=== PATIENT | female | born 1945 | race African-American/Black ===

== ENCOUNTER 2022-04-02 11:05 | Observation (INO) | payer MEDICARE ==
[~2022-04-02] VITALS: Ht 152.4 cm; Wt 46.0 kg
[2022-04-02] VITALS (28 sets, daily range): BP systolic 104–143; BP diastolic 39–60
[~2022-04-02 11:05] MED LIST: AMLODIPINE5 MG OR; AMLODIPINE5 MG PO; BACTRIM DS1 TAB PO; BAYER ASPIRIN E81 MG PO; BAYER LOW81 MG OR; BENAZEPRIL5 MG PO; CARVEDILOL12.5 MG OR; CIPROFLOXACN500 MG PO; COREG12.5 MG OR; COZAAR100 MG PO; DIABETA5 MG OR; DONEPEZIL HCL10 M1 PO; FLAGYL500 MG PO; GLYBURIDE5 M1 OR; GLYBURIDE5 MG PO; HYDROCHLOROT25 MG OR; KEFLEX500 MG PO; LEVOTHYROXIN100 MCG PO; LORTAB 10 PO; LORTAB 5/3255 MG PO; LORTAB 7.5 PO; LORTAB5 PO; MAXZIDE-2537.5 MG/TA PO; MECLIZINE12.5 MG OR; METFORMIN1000 MG OR; METFORMIN500 M1 OR; METFORMIN500 M1 PO; METFORMIN500 M2 PO; METROGEL VAG0.75 % VA; MONISTAT 3 VA; NAPROSYN500 MG OR; NORVASC10 M1 PO; NORVASC5 MG PO; NOVOLIN 70/30 SC; NOVOLIN N1000 UNITS SC; NOVOLOG; NOVOLOG SC; NOVOLOG100 IU/1 M SC; PENICILLN VK500 M1 OR; POTASSIUM CHLO10 MEQ PO; PRAVACHOL40 MG PO; ROBITUSSIN AC10 ML OR; SENNA8.6 MG PO; TAMOXIFEN; TAMOXIFEN CITRA10 MG PO; TAMOXIFEN XX; ZESTORETIC 20/11 TAB OR; ZYRTEC ALLGY10 M1 PO
--- NOTE | 2022-04-02 11:05 | NUR ---
PT IN ROOM VIA EMS
[2022-04-02 11:29] LABS: IMMATURE GRANULOCYTES 0.3 % (0.0-5.0); MEAN CORPUSCULAR HGB 30.5 pG CALC (26.0-32.0); MEAN CORPUSCULAR HGB CONC 31.7 g/dL CAL (32.0-36.0); NEUT# 6.15 thou/uL (2.00-7.15); RED BLOOD COUNT 1.87 mill/uL (4.20-5.60); RED CELL DISTRI WIDTH 13.3 % (11.5-15.5)
[2022-04-02 11:31] LABS: HEMOGLOBIN 5.7 g/dl (12.0-16.0); MEAN CELL VOLUME 96.3 fL CALC (80.0-100.0)
[2022-04-02 11:46] LABS: ALBUMIN 4.1 g/dL (3.2-5.0); ALKALINE PHOSPHATASE 67 u/l (38-126); CHLORIDE 108 mmol/l (95-108); POTASSIUM 5.1 mmol/l (3.5-5.1); SODIUM 138 mmol/l (137-146); TOTAL PROTEIN 7.4 g/dL (6.3-8.2)
[2022-04-02 11:56] LABS: ANION GAP 16 (6-22 (CALC)); BILIRUBIN, TOTAL 0.3 mg/dL (0.0-1.4); BUN/CREATININE RATIO 28 (12-20 (CALC)); CARBON DIOXIDE 19 mmol/l (22-30); CREATININE 3.1 mg/dL (0.5-1.0); GFR FOR AFR.AMER. 18 ML/MIN (>=60 (CALC)); GFR OTHER RACES 15 ML/MIN (>=60 (CALC)); SGOT/AST 42 u/l (9-36)
[2022-04-02 11:57] LABS: BUN 88 mg/dL (8-23)
--- NOTE | 2022-04-02 12:00 | NUR ---
Reassessment of patient completed. No distress noted.
--- NOTE | 2022-04-02 13:01 | NUR ---
Reassessment of patient completed. No distress noted.
--- NOTE | 2022-04-02 14:00 | NUR ---
PT IS RECEIVED BLOOD. PT IN BED RESTING WITH HER EYES CLOSED
--- NOTE | 2022-04-02 15:00 | NUR ---
PT IS STILL IN ROOM RESTING WITH EYES CLOSED. BLOOD CONTINUE TO BE TRANSFUSED. PT HAS NO COMPLAINT
[2022-04-02] MEDS ORDERED: TRAZODONE100 MG PO (15:59)
--- NOTE | 2022-04-02 16:00 | NUR ---
PT IN ROOM RESTING. FIRST UNIT OF BLOOD IS ALMOST DONE. PT TOLERATED TRANSFUSION. NO COMPLAINT, NAD
[2022-04-02] MEDS ORDERED: FERROUS SULF325 M3 PO (16:01)
[2022-04-02] MEDS ORDERED: CLOPIDOGREL75 MG PO (16:02)
[2022-04-02] MEDS ORDERED: METOPROL TAR25 MG PO (16:03)
[2022-04-02] MEDS ORDERED: LIPITOR80 M1 PO (16:04)
[2022-04-02] MEDS ORDERED: ASPIRIN81 MG PO (16:05)
--- NOTE | 2022-04-02 17:05 | NUR ---
RECIEVED FROM ER VIA STRETCHER AT 1653 TO ROOM 272. ALERT AND ORIENTED WITH PERIODS OF CONFUSION. ASSIST OF 1 WITH ADLs.
--- NOTE | 2022-04-02 17:09 | NUR ---
PT ADMITTED TO MS 272. BEDSIDE REPORT GIVEN TO DENNYS
--- NOTE | 2022-04-02 17:30 | NUR ---
SISTER AND GRANDSON AT BEDSIDE.
[2022-04-02 18:24] LABS: HEMOGLOBIN 7.6 g/dl (12.0-16.0)
--- NOTE | 2022-04-02 18:40 | NUR ---
BLOOD TRANSFUSION INFUSING AT THIS TIME NO S/S OF BLOOD TRANSFUSION REACTION NOTED.
--- NOTE | 2022-04-02 19:30 | NUR ---
PATIENT RESTING IN BED AT THIS TIME-AWAKE ALERT ORIENTED TO SELF AND PLACE. FORGETFUL AT TIMES. BLOOD TRANSFUSION IN PROGRESS VIA IVF SITE TO LEFT FOREARM. SITE IS HEALTHY AT THIS TIME. UNIT#[id number] INFUSING. NO S/S OF ANY ADVERSE REACTION AT THIS TIME. TELE MONITOR IN PLACE. SALINE LOCK TO RIGHT FOREARM INTACT. PATIENT WITH NO COMPLAINTS AT THIS TIME. SAFETY PRECAUTIONS REINFORCED. CALL LIGHT IN REACH. WILL CONT TO MONITOR.
--- NOTE | 2022-04-02 21:15 | NUR ---
BLOOD TRANSFUSION UNIT#[id number] COMPLETED WITHOUT ANY ADVERSE REACTION. IVF NS PATENT AND INFUSING ORDERED AT 100CC/HR. SITE TO LEFT FOREARM REMAINS HEALTHY. TELE MONITOR IN PLACE. HS MEDS WERE GIVEN. SAFETY PRECAUTIONS REINFORCED. CALL LIGHT IN REACH. WILL CONT TO MONITOR.
--- NOTE | 2022-04-02 23:30 | NUR ---
PATIENT RESTING IN BED-VENOFER 200MG IN 100CC OF NS HUNG AND INFUSING VIA LEFT FOREARM SITE. PATIENT IS SLEEPING WITH EYES CLOSED AND RESPS EVEN AND UNLABORED. CALL LIGHT IN REACH. WILL CONT TO MONITOR.
[2022-04-03] VITALS (7 sets, daily range): BP systolic 152–187; BP diastolic 57–67
[2022-04-03 00:25] LABS: HEMATOCRIT 26.7 % (37.0-47.0)
--- NOTE | 2022-04-03 02:30 | NUR ---
PATIENT RESTING IN BED WITH EYES CLOSED. RESPS ARE EVEN AND UNLABORED. IVF PATENT AND INFUSING VIA LEFTG ARM SITE AT 100CC/HR. SITE REMAINS HEALTHY. TELE MONITOR IN PLACE. CALL LIGHT IN REACH. WILL CONT TO MONITOR.
--- NOTE | 2022-04-03 04:06 | NUR ---
PATIENT RESTING IN BED WITH EYES CLOSED AND RESPS ARE EVEN AND UNLABORED. CALL LIGHT IN REACH. IVF PATENT AND INFUSING VIA LEFT FOREARM IV SITE. TELE MONITOR IN PLACE. CALL LIGHT IN REACH. WILL CONT TO MONITOR.
[2022-04-03 06:11] LABS: HEMATOCRIT 28.5 % (37.0-47.0); HEMOGLOBIN 9.5 g/dl (12.0-16.0)
[2022-04-03 07:05] LABS: HEMATOCRIT 28.2 % (37.0-47.0); HEMOGLOBIN 9.3 g/dl (12.0-16.0); MEAN CELL VOLUME 93.4 fL CALC (80.0-100.0); MEAN CORPUSCULAR HGB 30.8 pG CALC (26.0-32.0); RED BLOOD COUNT 3.02 mill/uL (4.20-5.60); RED CELL DISTRI WIDTH 14.3 % (11.5-15.5)
[2022-04-03 07:46] LABS: CREATININE 1.9 mg/dL (0.5-1.0); POTASSIUM 5.2 mmol/l (3.5-5.1)
--- NOTE | 2022-04-03 09:11 | NUR ---
RESTING IN BED AWAKE. ADDITIONAL WARM BLANKET GIVEN PER PT REQUEST.
--- NOTE | 2022-04-03 13:47 | NUR ---
DIET CHANGED TO CARDIAC DIET.
--- NOTE | 2022-04-03 17:20 | NUR ---
FAMILY AT BEDSIDE.
--- NOTE | 2022-04-03 20:00 | NUR ---
PATIENT AWAKE ALERT AND ORIENTED TO PERSON AND PLACE-KNOW BIRTHDATE BUT IS FORGETFUL. MORE ALERT TONIGHT THAN LAST NIGHT. STATES THAT SHE WANTS TO GO HOME. PATIENT PROVIDED WITH SNACKS PER PATIENT REQUEST. APPETITE IS VERY GOOD. PROVIDED MORE BLANKETS PER PATIENT REQUEST. IV SITE TO LEFT FOREARM INTACT WITH IVF NS PATENT AND INFUSING AT 10CC/HR. SITE REMAINS HEALTHY. TELE MONITOR IN PLACE-LAST READING WAS [id number]. LUNGS ARE CLEAR. ABD IS SOFT WITH ACTIVE BS. NO PERPHERAL EDEMA NOTED. SAFETY PRECAUTIONS REINFORCED. CALL LIGHT IN REACH. WILL CONT TO MONITOR.
--- NOTE | 2022-04-03 23:24 | NUR ---
PATIENT RESTING IN BED WITH HOB SLIGHTLY ELEVATED. EYES ARE CLOSED AND RESPS ARE EVEN AND UNLABORED. IVF PATENT AND INFUSING AT 100CC/HR ORDERED, TELE MONITOR IN PLACE. CALL LIGHT IN REACH. WILL CONT TO MONITOR.
[2022-04-04 00:08] VITALS: BP 144/53
--- NOTE | 2022-04-04 02:10 | NUR ---
PATIENT RESTING IN BED-HOB SLIGHTLY ELEVATED. EYES CLOSED AND RESPS ARE EVEN AND UNLABORED. TELE MONITOR IN PLACE. IVF NS PATENT AND INFUSING VIA LEFT ARM IV SITE AT 100CC/HR. CALL LIGHT IN REACH. WILL CONT TO MONITOR.
--- NOTE | 2022-04-04 04:30 | NUR ---
PATIEN T RESTING IN BED AT THIS TIME WITH EYES CLOSED. RESPS ARE EVEN AND UNLABORED. TELE MONITOR IN PLACE. CALL LIGHT IN REACH. WILL CONT TO MONITOR.
[2022-04-04 04:39] VITALS: BP 156/61
[2022-04-04 06:02] LABS: HEMATOCRIT 27.4 % (37.0-47.0); MEAN CELL VOLUME 94.5 fL CALC (80.0-100.0); MEAN CORPUSCULAR HGB CONC 32.8 g/dL CAL (32.0-36.0); RED BLOOD COUNT 2.9 mill/uL (4.20-5.60); RED CELL DISTRI WIDTH 14.3 % (11.5-15.5)
[2022-04-04 06:12] LABS: CREATININE 1.2 mg/dL (0.5-1.0); MAGNESIUM 2.5 mg/dL (1.6-2.3); POTASSIUM 4.5 mmol/l (3.5-5.1)
[2022-04-04 07:00] VITALS: BP 169/61
--- NOTE | 2022-04-04 07:17 | NUR ---
RECIEVED REPORT FROM OFF GOING NURSE. RESTING IN BED. NO S/S OF DISTRESS NOTED.
--- NOTE | 2022-04-04 11:01 | NUR ---
RESTING IN BED NO C/O PAIN VOICED. NO S/S OF PAIN NOTED. FREQ ROUNDS ROUNDS MADE TO ENSURE PT SAFETY.
--- NOTE | 2022-04-04 11:34 | NUR ---
RECIEVED MEDLIST FROM [facility].
[2022-04-04] MEDS ORDERED: GLIPIZIDE ER5 MG PO (11:39)
[2022-04-04] MEDS ORDERED: KAPSPARGO SPRIN25 MG (11:42)
[2022-04-04] MEDS ORDERED: PROTONIX40 M2 PO (12:42)
--- NOTE | 2022-04-04 14:24 | NUR ---
SPOKE WITH LETICIA JIMENEZ IN REGARDS TO PT DISCHARGE AND NEED FOR TRANSPORT HOME.
--- NOTE | 2022-04-04 14:43 | NUR ---
DISCHARGE INSTRUCTIONS PROVIDED. PIV TO LT FA REMOVED PT TOLERATED WELL. VOLUNTEER STAFF TRANSFERRED PT VIA W/C OFF UNIT.
== END 2022-04-04 14:44 ==
LOC: ED 11:05 → ED-I 12:23 → ED 14:04 → MS2 14:05
PROVIDERS: Emergency Medicine; ADMIT Internal Medicine; ATTEND Internal Medicine
PROC: 30233N1 Transfusion of Nonautologous Red Blood Cells into Peripheral Vein, Percutaneous Approach (ICD-10-PCS; principal; 2022-04-02)
PROC: 30233N1 Transfusion of Nonautologous Red Blood Cells into Peripheral Vein, Percutaneous Approach (ICD-10-PCS; 2022-04-02)
DX: D62 Acute posthemorrhagic anemia (principal); R19.5 Other fecal abnormalities; N17.9 Acute kidney failure, unspecified; I12.9 Hypertensive chronic kidney disease with stage 1 through stage 4 chronic kidney disease, or unspecified chronic kidney disease; E11.22 Type 2 diabetes mellitus with diabetic chronic kidney disease; N18.9 Chronic kidney disease, unspecified; F03.90 Unspecified dementia, unspecified severity, without behavioral disturbance, psychotic disturbance, mood disturbance, and anxiety; E03.9 Hypothyroidism, unspecified; E78.00 Pure hypercholesterolemia, unspecified; Z79.84 Long term (current) use of oral hypoglycemic drugs; Z79.82 Long term (current) use of aspirin; Z86.73 Personal history of transient ischemic attack (TIA), and cerebral infarction without residual deficits; Z79.02 Long term (current) use of antithrombotics/antiplatelets; Z85.3 Personal history of malignant neoplasm of breast; Z91.81 History of falling
CPT/HCPCS: J1756; P9016; S0164

== ENCOUNTER 2022-04-17 15:14 | Inpatient (IN) | payer MEDICARE ==
[~2022-04-17] VITALS: Ht 152.4 cm; Wt 50.0 kg
[2022-04-17] VITALS (31 sets, daily range): BP systolic 103–153; BP diastolic 42–92
[~2022-04-17 15:14] MED LIST changes: +ASPIRIN81 MG PO; +CLOPIDOGREL75 MG PO; +FERROUS SULF325 M3 PO; +GLIPIZIDE ER5 MG PO; +LIPITOR80 M1 PO; +METOPROL TAR25 MG PO; +PROTONIX40 M2 PO; +TOPROL XL25 M1 PO; +TRAZODONE100 MG PO
--- NOTE | 2022-04-17 15:14 | NUR ---
PT TO ROOM VIA EMS
[2022-04-17 15:40] LABS: IMMATURE GRANULOCYTES 0.2 % (0.0-5.0); MEAN CORPUSCULAR HGB 30.9 pG CALC (26.0-32.0); MEAN CORPUSCULAR HGB CONC 30.9 g/dL CAL (32.0-36.0); NEUT# 4.14 thou/uL (2.00-7.15); RED BLOOD COUNT 1.75 mill/uL (4.20-5.60)
--- NOTE | 2022-04-17 16:00 | NUR ---
PT REPORTS TO THE ED VIA EMS C/O GENERALIZED WEAKNESS, INCONTINIENCE, UNSTEADINESS ON HER FEET AND DECREASED APPETITE FOR THE PAST 2 AND A HALF WEEKS BUT INCREASED WEAKNESS TODAY COUNTY TREASURER. PT REPORTS NOT REMEMBERING FALLING ON THE GROUND AND FAMILY FOUND HER ON THE FLOOR AT HOME. PT DENIES ANY PAIN OF ANY KIND, AND STATES SHANT SHE IS ' JUST TIRED AND WEAK'. NO PAIN WAS NOTED ON EXAMINATION AND NO BRUISING OR ABRASIONS NOTED ON PT'S SKIN. PT IN IN NAD AT THIS TIME. PT REORTS SHANT AT HER LAST ER VISIT, 2 1/2 WEEKS AGO, SHE RECIEVED A IRON INFUSION DUE TO LOW HEMOGLOBIN.
[2022-04-17 16:04] LABS: ALBUMIN 3.6 g/dL (3.2-5.0); ALKALINE PHOSPHATASE 70 u/l (38-126); ANION GAP 14 (6-22 (CALC)); BILIRUBIN, TOTAL 0.3 mg/dL (0.0-1.4); BUN 56 mg/dL (8-23); BUN/CREATININE RATIO 32 (12-20 (CALC)); CARBON DIOXIDE 21 mmol/l (22-30); CHLORIDE 113 mmol/l (95-108); CREATININE 1.7 mg/dL (0.5-1.0); GFR FOR AFR.AMER. 35 ML/MIN (>=60 (CALC)); GFR OTHER RACES 29 ML/MIN (>=60 (CALC)); SGOT/AST 29 u/l (9-36); SODIUM 143 mmol/l (137-146); TOTAL PROTEIN 6.8 g/dL (6.3-8.2)
[2022-04-17 16:06] LABS: HEMOGLOBIN 5.4 g/dl (12.0-16.0)
[2022-04-17 16:07] LABS: HEMATOCRIT 17.5 % (37.0-47.0)
[2022-04-17 16:09] LABS: POTASSIUM 5.4 mmol/l (3.5-5.1)
--- NOTE | 2022-04-17 16:30 | NUR ---
Reassessment of patient completed. No distress noted.
[2022-04-17] MEDS ORDERED: COLACE100 MG PO (16:58)
[2022-04-17] MEDS ORDERED: TRAZODONE50 MG PO (17:00)
[2022-04-17] MEDS ORDERED: MAXZIDE PO (17:01)
--- NOTE | 2022-04-17 17:15 | NUR ---
AIDEN TENORIO APRN WITH FECAL OCCULT TEST.
--- NOTE | 2022-04-17 17:33 | NUR ---
Reassessment of patient completed. No distress noted.
--- NOTE | 2022-04-17 18:29 | NUR ---
IN ROOM WITH PT ADMINISTERING BLOOD PRODUCTS. NAD.
--- NOTE | 2022-04-17 19:21 | NUR ---
REPORT CALLED TO CAMI ON MED/SURG ROOM 261. PT WILL BE TRANSPORTED ONCE SHIFT CHANGE IS TAKEN.
--- NOTE | 2022-04-17 19:30 | NUR ---
RECEIVED REPORT AND ASSUMED CARE OF PT. PT RESTING WITH PRBCS INFUSING. NAD.
--- NOTE | 2022-04-17 20:00 | NUR ---
Reassessment of patient completed. No distress noted. PRBCS INFUSING.
--- NOTE | 2022-04-17 20:48 | NUR ---
PT TRANSFERRED TO MED SURG. 261
--- NOTE | 2022-04-17 20:50 | NUR ---
PATIENT ADMITTED TO ROOM 261. ALERT AND ORIENTED. ABLE TO MAKE NEEDS KNOWN. TRANSFERRED TO ROOM BED VIA STRETCHER WITH STAFF X3. ASSESSMENT COMPLETE. NO OPEN AREAS OBSERVED. DOES HAVE RAISED DRY SITES TO FEET. DENIES ANY PAIN OR DISCOMFORT. NO SIGNS OF DISTRESS. FIRST UNIT OF BLOOD REMAINS TRANSFUSING. WILL CONTINUE TO MONITOR. PATIENT ORIENTED TO ROOM, CALL LIGHT AND SURROUNDINGS. CALL LIGHT IN REACH. BED REMAINS IN LOW POSITION. FRESH WATER AT BEDSIDE.
[2022-04-18] VITALS (9 sets, daily range): BP systolic 117–163; BP diastolic 54–65
--- NOTE | 2022-04-18 00:55 | NUR ---
PATIENT RESTING IN BED WITH EYES CLOSED. NO SIGNS OF DISTRESS. NO COMPLAINTS OF PAIN. SECOND UNIT OF BLOOD REMAINS TRANSFUSING. WILL CONTINUE TO MONITOR.
--- NOTE | 2022-04-18 04:00 | NUR ---
PATIENT REMAINS RESTING IN BED WITH EYES CLOSED. NO SIGNS OF DISTRESS NOTED. NO COMPLAINTS OF PAIN. BED REMAINS IN LOW POSITION. CALL LIGHT AND BELONGINGS WITHIN REACH.
[2022-04-18 05:50] LABS: IMMATURE GRANULOCYTES 0.2 % (0.0-5.0); MEAN CORPUSCULAR HGB 30.2 pG CALC (26.0-32.0); MEAN CORPUSCULAR HGB CONC 33.2 g/dL CAL (32.0-36.0); NEUT# 3.81 thou/uL (2.00-7.15); RED BLOOD COUNT 2.95 mill/uL (4.20-5.60); RED CELL DISTRI WIDTH 17.7 % (11.5-15.5)
[2022-04-18 05:57] LABS: HEMATOCRIT 26.8 % (37.0-47.0); HEMOGLOBIN 8.9 g/dl (12.0-16.0); MEAN CELL VOLUME 90.8 fL CALC (80.0-100.0)
[2022-04-18 06:07] LABS: ALBUMIN 3.1 g/dL (3.2-5.0); CREATININE 1.4 mg/dL (0.5-1.0); MAGNESIUM 2.6 mg/dL (1.6-2.3); TOTAL PROTEIN 5.9 g/dL (6.3-8.2)
[2022-04-18 06:10] LABS: BILIRUBIN, TOTAL 2.2 mg/dL (0.0-1.4); POTASSIUM 5.3 mmol/l (3.5-5.1)
--- NOTE | 2022-04-18 08:00 | NUR ---
PATIENT ALERT AND ORIENTED X3. RESTING STABLE IN BED AT THIS TIME. ASSESSMENTE HEAD-TO TOE COMPLETE. PATIENT IS EDUCATED ABOUD MEDICATIONS AND NURSING PLAN FOR TODAY. PATIENT REFER UNDERSTAND. SAFETY AND FALL PRECAUTIONS IN PLACE. CALL LIGHT WITHIN IN REACH.
--- NOTE | 2022-04-18 08:00 | NUR ---
RECEIVE REPORT FROM SEGUNDO MCDOWELL.
[2022-04-18 10:33] LABS: URINE BILIRUBIN - DIPSTICK NEGATIVE (NEGATIVE); URINE BLOOD DIPSTICK NEGATIVE (NEGATIVE); URINE COLOR YELLOW; URINE GLUCOSE - DIPSTICK NEGATIVE (NEGATIVE); URINE KETONE NEGATIVE (NEGATIVE); URINE LEUK ESTERASE NEGATIVE (NEGATIVE); URINE PROTEIN - DIPSTICK NEGATIVE (NEG-TRACE); URINE UROBILINOGEN - DIPSTICK 0.2 E.U./dL (0.2)
[2022-04-18 10:38] LABS: URINE NITRITE - DIPSTICK NEGATIVE (Negative)
--- NOTE | 2022-04-18 12:00 | NUR ---
PATIENT REMAINS RESTING IN BED WITH EYES CLOSED. NO SIGNS OF DISTRESS NOTED. NO COMPLAINTS OF PAIN. BED REMAINS IN LOW POSITION. SAFETY AND FALL PRECAUTIONS IN PLACE. CALL LIGHT WITHIN IN REACH.
--- NOTE | 2022-04-18 16:00 | NUR ---
PATIENT RESTING STABLE IN THE BED.
--- NOTE | 2022-04-18 19:35 | NUR ---
PATIENT RESTING IN BED. ALERT WITH PERIODS OF CONFUSION. ASKS THE SAME QUESTION MULTIPLE TIMES. ASSESSMENT COMPLETE. NO COMPLAINTS OF PAIN. NO SIGNS OF DISTRESS. BED REMAINS IN LOW POSITION. CALL LIGHT IN REACH.
--- NOTE | 2022-04-19 00:32 | NUR ---
PATIENT RESTING IN BED. NO SIGNS OF DISTRESS NOTED. NO COMPLAINTS OF PAIN. BED REMAINS IN LOW POSITION. CALL LIGHT IN REACH. BED ALARM REMAINS ACTIVE.
[2022-04-19 03:47] VITALS: BP 141/61
--- NOTE | 2022-04-19 04:30 | NUR ---
PATIENT RESTING IN BED. NO COMPLAINTS VOICED AT THIS TIME. BED REMAINS IN LOW POSITION. CALL LIGHT IN REACH. PATIENT NEEDS FREQUENT REMINDING TO KEEP RIGHT ARM STRAIGHT SO IV DOESNT SOUND.
[2022-04-19 05:49] LABS: HEMATOCRIT 27.3 % (37.0-47.0); IMMATURE GRANULOCYTES 0.1 % (0.0-5.0); MEAN CELL VOLUME 91.6 fL CALC (80.0-100.0); MEAN CORPUSCULAR HGB 30.2 pG CALC (26.0-32.0); NEUT# 4.09 thou/uL (2.00-7.15); RED BLOOD COUNT 2.98 mill/uL (4.20-5.60); RED CELL DISTRI WIDTH 17.7 % (11.5-15.5)
[2022-04-19 06:00] LABS: ALBUMIN 3.1 g/dL (3.2-5.0); CREATININE 1.1 mg/dL (0.5-1.0); MAGNESIUM 2.3 mg/dL (1.6-2.3)
[2022-04-19 06:11] LABS: BILIRUBIN, TOTAL 1.3 mg/dL (0.0-1.4)
[2022-04-19 06:40] VITALS: BP 150/60
--- NOTE | 2022-04-19 07:00 | NUR ---
RECEIVE REPORT FROM SEGUNDO MCDOWELL.
[2022-04-19 10:15] VITALS: BP 163/58
[2022-04-19] MEDS ORDERED: AMLODIPINE BESYL5 MG PO (12:09)
[2022-04-19] MEDS ORDERED: PROTONIX40 M2 PO (12:09)
--- NOTE | 2022-04-19 12:32 | NUR ---
PATIENT REMAINS RESTING IN CHAIR WITH EYES CLOSED. NO SIGNS OF DISTRESS NOTED. NO COMPLAINTS OF PAIN. BED REMAINS IN LOW POSITION. SAFETY AND FALL PRECAUTIONS IN PLACE. CALL LIGHT WITHIN IN REACH.
--- NOTE | 2022-04-19 15:59 | NUR ---
PATIENT RESTING IN BED. NO COMPLAINTS VOICED AT THIS TIME. BED REMAINS IN LOW POSITION. CALL LIGHT IN REACH.
--- NOTE | 2022-04-19 16:54 | NUR ---
Discharge instructions given. Patient verbalizes understanding of same. Discharged in stable condition via Wheelchair to Home with staff. All belongings sent with pt.
[2022-04-24] MEDS ORDERED: CLOPIDOGREL75 MG PO (10:02)
== END 2022-04-19 16:54 | disposition home health service (06) | DRG 812 ==
LOC: ED 15:14 → ED-I 15:44 → ED 15:44 → ED-I 17:20 → ED 18:22 → MS2 18:23
PROVIDERS: Nurse Practitioner; Nurse Practitioner Family; ADMIT Internal Medicine; ATTEND Internal Medicine
PROC: 30233N1 Transfusion of Nonautologous Red Blood Cells into Peripheral Vein, Percutaneous Approach (ICD-10-PCS; principal; 2022-04-17)
PROC: 30233N1 Transfusion of Nonautologous Red Blood Cells into Peripheral Vein, Percutaneous Approach (ICD-10-PCS; 2022-04-17)
DX: D62 Acute posthemorrhagic anemia (principal); K92.2 Gastrointestinal hemorrhage, unspecified; N17.9 Acute kidney failure, unspecified; I10 Essential (primary) hypertension; E11.9 Type 2 diabetes mellitus without complications; E07.89 Other specified disorders of thyroid; F03.B0 Unspecified dementia, moderate, without behavioral disturbance, psychotic disturbance, mood disturbance, and anxiety; E78.00 Pure hypercholesterolemia, unspecified; Z91.81 History of falling; Z86.73 Personal history of transient ischemic attack (TIA), and cerebral infarction without residual deficits; Z85.3 Personal history of malignant neoplasm of breast; Z90.12 Acquired absence of left breast and nipple; Z79.02 Long term (current) use of antithrombotics/antiplatelets
CPT/HCPCS: P9016; S0164

== ENCOUNTER 2022-09-29 15:48 | Inpatient (IN) | payer MEDICARE ==
[~2022-09-29] VITALS: Ht 162.6 cm; Wt 65.0 kg
[2022-09-29] VITALS (87 sets, daily range): BP systolic 104–233; BP diastolic 51–112
[~2022-09-29 15:48] MED LIST changes: +AMLODIPINE BESYL5 MG PO; +COLACE100 MG PO; +MAXZIDE PO; +TRAZODONE50 MG PO
[2022-09-29 16:20] LABS: BASO% 0.5 % (0-3); EOS% 0.5 % (0-8); HEMATOCRIT 28.3 % (37.0-47.0); HEMOGLOBIN 8.9 g/dl (12.0-16.0); IMMATURE GRANULOCYTES 0.1 % (0.0-5.0); LYMPH% 5.6 % (15-41); MEAN CORPUSCULAR HGB 29.6 pG CALC (26.0-32.0); MEAN CORPUSCULAR HGB CONC 31.4 g/dL CAL (32.0-36.0); MONO% 4.5 % (2-13); NEUT# 8.88 thou/uL (2.00-7.15); NEUT% 88.8 % (42-76); RED BLOOD COUNT 3.01 mill/uL (4.20-5.60); RED CELL DISTRI WIDTH 13.2 % (11.5-15.5)
[2022-09-29 16:33] LABS: BILIRUBIN, TOTAL 0.8 mg/dL (0.02-1.3); CREATININE 1.3 mg/dL (0.5-1.0); MAGNESIUM 1.9 mg/dL (1.6-2.3)
[2022-09-29 16:39] LABS: ALBUMIN 4.2 g/dL (3.2-5.0); TOTAL PROTEIN 7.9 g/dL (6.3-8.2)
[2022-09-30] VITALS (47 sets, daily range): BP systolic 101–159; BP diastolic 50–72
[2022-09-30 04:57] LABS: HEMATOCRIT 28.3 % (37.0-47.0); MEAN CELL VOLUME 92.8 fL CALC (80.0-100.0); MEAN CORPUSCULAR HGB 29.5 pG CALC (26.0-32.0); MEAN CORPUSCULAR HGB CONC 31.8 g/dL CAL (32.0-36.0); RED BLOOD COUNT 3.05 mill/uL (4.20-5.60); RED CELL DISTRI WIDTH 13.3 % (11.5-15.5)
[2022-09-30 05:23] LABS: ALBUMIN 3.8 g/dL (3.2-5.0); BILIRUBIN, TOTAL 0.8 mg/dL (0.02-1.3); CREATININE 1.1 mg/dL (0.5-1.0); MAGNESIUM 1.8 mg/dL (1.6-2.3); TOTAL PROTEIN 7.4 g/dL (6.3-8.2)
[2022-09-30 05:31] LABS: POTASSIUM 4.7 mmol/l (3.5-5.1)
[2022-09-30 06:23] LABS: URINE BILIRUBIN - DIPSTICK NEGATIVE (NEGATIVE); URINE BLOOD DIPSTICK LARGE (NEGATIVE); URINE COLOR YELLOW; URINE GLUCOSE - DIPSTICK NEGATIVE (NEGATIVE); URINE KETONE NEGATIVE (NEGATIVE); URINE PROTEIN - DIPSTICK NEGATIVE (NEG-TRACE); URINE UROBILINOGEN - DIPSTICK 0.2 E.U./dL (0.2)
[2022-09-30 06:24] LABS: URINE NITRITE - DIPSTICK NEGATIVE (Negative)
[2022-09-30 06:25] LABS: URINE LEUK ESTERASE NEGATIVE (NEGATIVE)
[2022-09-30 06:30] LABS: URINE EPITHELIAL CELLS FEW EPI/hpf (0-FEW); URINE RBC 50-100 RBC/hpf (0-5)
[2022-09-30 06:31] LABS: URINE BACTERIA FEW hpf
[2022-09-30] MEDS ORDERED: PROCARDIA XL30 MG PO (14:12)
[2022-10-01] VITALS (19 sets, daily range): BP systolic 112–182; BP diastolic 48–100
[2022-10-01 04:01] LABS: HEMATOCRIT 27.4 % (37.0-47.0); HEMOGLOBIN 8.7 g/dl (12.0-16.0); MEAN CELL VOLUME 93.5 fL CALC (80.0-100.0); MEAN CORPUSCULAR HGB 29.7 pG CALC (26.0-32.0); MEAN CORPUSCULAR HGB CONC 31.8 g/dL CAL (32.0-36.0); RED BLOOD COUNT 2.93 mill/uL (4.20-5.60); RED CELL DISTRI WIDTH 13.5 % (11.5-15.5)
[2022-10-01 04:10] LABS: ALBUMIN 3.7 g/dL (3.2-5.0); BILIRUBIN, TOTAL 0.6 mg/dL (0.02-1.3); CREATININE 1.3 mg/dL (0.5-1.0); POTASSIUM 4.1 mmol/l (3.5-5.1); TOTAL PROTEIN 7.3 g/dL (6.3-8.2)
[2022-10-02 04:05] VITALS: BP 112/51
[2022-10-02 06:01] LABS: HEMOGLOBIN 8.9 g/dl (12.0-16.0); MEAN CELL VOLUME 93.3 fL CALC (80.0-100.0); MEAN CORPUSCULAR HGB 29.7 pG CALC (26.0-32.0); MEAN CORPUSCULAR HGB CONC 31.8 g/dL CAL (32.0-36.0); RED CELL DISTRI WIDTH 13.2 % (11.5-15.5)
[2022-10-02 06:32] LABS: ALBUMIN 3.9 g/dL (3.2-5.0); ALKALINE PHOSPHATASE 79 u/l (38-126); ANION GAP 9 (6-22 (CALC)); BILIRUBIN, TOTAL 0.5 mg/dL (0.02-1.3); BUN 24 mg/dL (8-23); BUN/CREATININE RATIO 25 (12-20 (CALC)); CARBON DIOXIDE 23 mmol/l (22-30); CHLORIDE 110 mmol/l (95-108); GFR FOR AFR.AMER. > 60 ML/MIN (>=60 (CALC)); GFR OTHER RACES 54 ML/MIN (>=60 (CALC)); POTASSIUM 3.9 mmol/l (3.5-5.1); SGOT/AST 38 u/l (9-36); SODIUM 139 mmol/l (137-146); TOTAL PROTEIN 7.5 g/dL (6.3-8.2)
[2022-10-02 07:23] VITALS: BP 137/54
[2022-10-02] MEDS ORDERED: LEVETIRACETAM500 MG PO (09:49)
== END 2022-10-02 13:47 | DRG 101 ==
LOC: ED 15:48 → ED-I 17:55 → ED 18:42 → ICU 18:43 → MS2 10-01 20:59
PROVIDERS: Family Medicine; ADMIT Internal Medicine; ATTEND Internal Medicine
PROC: 02HV33Z Insertion of Infusion Device into Superior Vena Cava, Percutaneous Approach (ICD-10-PCS; principal; 2022-09-29)
PROC: 0T9B70Z Drainage of Bladder with Drainage Device, Via Natural or Artificial Opening (ICD-10-PCS; 2022-09-29)
PROC: 5A1935Z Respiratory Ventilation, Less than 24 Consecutive Hours (ICD-10-PCS; 2022-09-29)
DX: R56.9 Unspecified convulsions (principal); N17.9 Acute kidney failure, unspecified; I16.0 Hypertensive urgency; I10 Essential (primary) hypertension; E11.9 Type 2 diabetes mellitus without complications; I25.10 Atherosclerotic heart disease of native coronary artery without angina pectoris; D64.9 Anemia, unspecified; E78.5 Hyperlipidemia, unspecified; F03.90 Unspecified dementia, unspecified severity, without behavioral disturbance, psychotic disturbance, mood disturbance, and anxiety; E03.9 Hypothyroidism, unspecified; E87.5 Hyperkalemia; Z86.73 Personal history of transient ischemic attack (TIA), and cerebral infarction without residual deficits; Z66 Do not resuscitate; Z85.3 Personal history of malignant neoplasm of breast; Z79.02 Long term (current) use of antithrombotics/antiplatelets; Z20.822 Contact with and (suspected) exposure to COVID-19
CPT/HCPCS: J1650; J1953

== ENCOUNTER 2022-11-10 10:05 | Emergency (ER) | payer MEDICARE ==
[~2022-11-10] VITALS: Ht 162.6 cm; Wt 50.8 kg
[2022-11-10] VITALS (12 sets, daily range): BP systolic 71–110; BP diastolic 33–54
[~2022-11-10 10:05] MED LIST changes: +LEVETIRACETAM500 MG PO; +PROCARDIA XL30 MG PO
[2022-11-10 11:21] LABS: BASO% 0.3 % (0-3); EOS% 0.7 % (0-8); IMMATURE GRANULOCYTES 0.1 % (0.0-5.0); LYMPH% 17.2 % (15-41); MEAN CELL VOLUME 95.2 fL CALC (80.0-100.0); MEAN CORPUSCULAR HGB 28.8 pG CALC (26.0-32.0); MEAN CORPUSCULAR HGB CONC 30.3 g/dL CAL (32.0-36.0); MONO% 6.4 % (2-13); NEUT# 6.51 thou/uL (2.00-7.15); NEUT% 75.3 % (42-76); RED BLOOD COUNT 2.08 mill/uL (4.20-5.60); RED CELL DISTRI WIDTH 13.9 % (11.5-15.5)
[2022-11-10 11:31] LABS: URINE BILIRUBIN - DIPSTICK NEGATIVE (NEGATIVE); URINE BLOOD DIPSTICK NEGATIVE (NEGATIVE); URINE COLOR YELLOW; URINE GLUCOSE - DIPSTICK NEGATIVE (NEGATIVE); URINE KETONE NEGATIVE (NEGATIVE); URINE LEUK ESTERASE NEGATIVE (NEGATIVE); URINE PH 5.5 (4.5-8.0); URINE PROTEIN - DIPSTICK NEGATIVE (NEG-TRACE); URINE SPECIFIC GRAVITY 1.015; URINE UROBILINOGEN - DIPSTICK 0.2 E.U./dL (0.2)
[2022-11-10 11:32] LABS: HEMATOCRIT 19.8 % (37.0-47.0)
[2022-11-10 11:34] LABS: URINE NITRITE - DIPSTICK NEGATIVE (Negative)
[2022-11-10 11:35] LABS: ALBUMIN 3.9 g/dL (3.2-5.0); BILIRUBIN, TOTAL 0.5 mg/dL (0.02-1.3); TOTAL PROTEIN 6.9 g/dL (6.3-8.2)
[2022-11-10 11:43] LABS: CREATININE 3.4 mg/dL (0.5-1.0); POTASSIUM 5.7 mmol/l (3.5-5.1)
== END 2022-11-10 14:03 | disposition short-term general hospital (02) ==
LOC: ED 10:05
PROVIDERS: Family Medicine
PROC: 30233N1 Transfusion of Nonautologous Red Blood Cells into Peripheral Vein, Percutaneous Approach (ICD-10-PCS; principal; 2022-11-10)
DX: K92.2 Gastrointestinal hemorrhage, unspecified (principal); D64.9 Anemia, unspecified; N17.9 Acute kidney failure, unspecified; E87.5 Hyperkalemia; I10 Essential (primary) hypertension; E78.5 Hyperlipidemia, unspecified; K21.9 Gastro-esophageal reflux disease without esophagitis; E11.9 Type 2 diabetes mellitus without complications; F03.90 Unspecified dementia, unspecified severity, without behavioral disturbance, psychotic disturbance, mood disturbance, and anxiety; Z86.73 Personal history of transient ischemic attack (TIA), and cerebral infarction without residual deficits
CPT/HCPCS: P9016; S0164

== ENCOUNTER 2024-06-05 08:44 | Emergency (ER) | payer MEDICARE, MEDICAID ==
[~2024-06-05] VITALS: Ht 162.6 cm; Wt 62.0 kg
[2024-06-05] MEDS ORDERED: SODIUM CHLORIDE 0.9% 1,000 ML IV ONE (09:00)
[2024-06-05 09:40] LABS: BASO% 0.4 % (0-3); EOS% 1.5 % (0-8); IMMATURE GRANULOCYTES 0.6 % (0.0-5.0); LYMPH% 21.8 % (15-41); MEAN CELL VOLUME 90.4 fL CALC (80.0-100.0); MEAN CORPUSCULAR HGB 27.8 pG CALC (26.0-32.0); MEAN CORPUSCULAR HGB CONC 30.8 g/dL CAL (32.0-36.0); MONO% 9.6 % (2-13); NEUT# 3.52 thou/uL (2.00-7.15); NEUT% 66.1 % (42-76); RED BLOOD COUNT 3.34 mill/uL (4.20-5.60); RED CELL DISTRI WIDTH 13.1 % (11.5-15.5)
[2024-06-05 09:42] LABS: URINE BLOOD DIPSTICK Trace-intact (NEGATIVE); URINE GLUCOSE - DIPSTICK Negative (NEGATIVE); URINE KETONE 15 mg/dL (NEGATIVE); URINE NITRITE - DIPSTICK Negative (Negative); URINE PH 5.5 (4.5-8.0); URINE PROTEIN - DIPSTICK 30 mg/dL (NEG-TRACE); URINE UROBILINOGEN - DIPSTICK 0.2 E.U./dL (0.2)
[2024-06-05 09:48] LABS: HEMATOCRIT 30.2 % (37.0-47.0); HEMOGLOBIN 9.3 g/dl (12.0-16.0)
[2024-06-05 09:57] LABS: ALBUMIN 3.9 g/dL (3.2-5.0); BILIRUBIN, TOTAL 0.7 mg/dL (0.02-1.3); TOTAL PROTEIN 8.1 g/dL (6.3-8.2)
[2024-06-05 09:58] LABS: PROTHROMBIN TIME 10.7 SECONDS (9.0-12.5)
[2024-06-05 09:58] LABS: CREATININE 1.4 mg/dL (0.5-1.0); POTASSIUM 4.5 mmol/l (3.5-5.1)
[2024-06-05 10:00] LABS: URINE COLOR Yellow; URINE LEUK ESTERASE Small (NEGATIVE)
[2024-06-05 10:01] LABS: URINE BACTERIA MANY hpf
[2024-06-05] MEDS ORDERED: TAM75CAP PO (10:22)
[2024-06-05] MEDS ORDERED: MACROBID100 M1 PO (10:22)
[2024-06-05 10:39] VITALS: BP 143/67
== END 2024-06-05 16:59 ==
LOC: ED 08:44
PROVIDERS: Family Medicine
DX: N39.0 Urinary tract infection, site not specified (principal); B96.20 Unspecified Escherichia coli [E. coli] as the cause of diseases classified elsewhere; Z16.12 Extended spectrum beta lactamase (ESBL) resistance; J10.1 Influenza due to other identified influenza virus with other respiratory manifestations; I10 Essential (primary) hypertension; E11.9 Type 2 diabetes mellitus without complications; F03.90 Unspecified dementia, unspecified severity, without behavioral disturbance, psychotic disturbance, mood disturbance, and anxiety; Z86.73 Personal history of transient ischemic attack (TIA), and cerebral infarction without residual deficits; Z20.822 Contact with and (suspected) exposure to COVID-19

== ENCOUNTER 2024-06-23 21:12 | Emergency (ER) | payer MEDICARE, MEDICAID ==
[~2024-06-23] VITALS: Ht 162.6 cm; Wt 60.0 kg
[~2024-06-23 21:12] MED LIST changes: +MACROBID100 M1 PO; +TAM75CAP PO
[2024-06-23 22:47] VITALS: BP 152/62
[2024-06-23 23:00] VITALS: BP 147/70
== END 2024-06-23 22:55 | disposition home or self-care (01) ==
LOC: ED 21:12
DX: R04.0 Epistaxis (principal); E11.9 Type 2 diabetes mellitus without complications; I10 Essential (primary) hypertension; F03.90 Unspecified dementia, unspecified severity, without behavioral disturbance, psychotic disturbance, mood disturbance, and anxiety; Z86.73 Personal history of transient ischemic attack (TIA), and cerebral infarction without residual deficits; Z79.02 Long term (current) use of antithrombotics/antiplatelets; J32.9 Chronic sinusitis, unspecified

== ENCOUNTER 2024-07-13 19:06 | Inpatient (IN) | payer MEDICARE, OTHER ==
[2024-07-13] VITALS (18 sets, daily range): BP systolic 94–123; BP diastolic 44–72
[~2024-07-13] VITALS: Ht 162.6 cm; Wt 63.5 kg
--- NOTE | 2024-07-13 19:06 | NUR ---
PATIENT ARRIVED TO ED VIA EMS.
[2024-07-13] MEDS ORDERED: CEFEPIME HYDROCHLORIDE 2 GM in SODIUM CHLORIDE 0.9% 100 ML IV STA (19:15)
[2024-07-13] MEDS ORDERED: SODIUM CHLORIDE 0.9% 1,000 ML BAG IV ONE (19:15)
[2024-07-13] MEDS ORDERED: VANCOMYCIN HCL 1 GM in SODIUM CHLORIDE 0.9% 250 ML IV STA (19:15)
[2024-07-13] MEDS ORDERED: ISOVUE-300 (Iopamidol) 100 ML SDV IV ONE ×2 (19:25)
[2024-07-13 19:54] LABS: BASO% 0.1 % (0-3); IMMATURE GRANULOCYTES 0.2 % (0.0-5.0); LYMPH% 10.7 % (15-41); MEAN CORPUSCULAR HGB 28.5 pG CALC (26.0-32.0); MEAN CORPUSCULAR HGB CONC 28.9 g/dL CAL (32.0-36.0); MONO% 2.9 % (2-13); NEUT# 7.33 thou/uL (2.00-7.15); NEUT% 86.1 % (42-76); RED BLOOD COUNT 1.23 mill/uL (4.20-5.60)
[2024-07-13 19:58] LABS: HEMATOCRIT 12.1 % (37.0-47.0); HEMOGLOBIN 3.5 g/dl (12.0-16.0); MEAN CELL VOLUME 98.4 fL CALC (80.0-100.0)
[2024-07-13] MEDS ORDERED: SODIUM CHLORIDE 0.9% 500 ML IV ONE (20:00)
[2024-07-13 20:03] LABS: CREATININE 1.2 mg/dL (0.5-1.0); POTASSIUM 4.7 mmol/l (3.5-5.1)
[2024-07-13 20:07] LABS: BILIRUBIN, TOTAL 0.3 mg/dL (0.02-1.3); TOTAL PROTEIN 6.1 g/dL (6.3-8.2)
[2024-07-13] MEDS ORDERED: FAMOTIDINE 10MG/ML 2ML SDV IV ONE (20:20)
--- NOTE | 2024-07-13 20:35 | NUR ---
ASKED EDP IF SHE WANTED EMERGENCY BLOOD FOR PATIENT. EDP REPORT SHE WILL ORDER BLOOD AND WAIT FOR TYPE AND SCREEN TO BE COMPLETED.
[2024-07-13] MEDS ORDERED: SODIUM CHLORIDE 0.9% 1,000 ML IV PRN (20:40)
[2024-07-13] MEDS ORDERED: MAGNESIUM HYDROXIDE 30 ML UDC PO PRN (20:40)
[2024-07-13] MEDS ORDERED: ACETAMINOPHEN 325 MG/TAB PO PRN (20:40)
[2024-07-13] MEDS ORDERED: Pantoprazole Sodium 40 MG VIAL (Protonix) IV ONE (20:50)
--- NOTE | 2024-07-13 20:55 | NUR ---
SPOKE TO RASTA BOOKER. PER [facility], REPORTED BY EMS PATIENT DOES NOT HAVE A DNR. ONE EXISTS IN OUR ELECTRONIC RECORD, PER PATIENTS POA PATIENT IS A DNR, AT THIS TIME PATIENTS RASTA BOOKER, VERBALLY CONSENTS TO BLOOD TRASNFUSION AND CONTINUATION OF PATIENT CARE.
--- NOTE | 2024-07-13 21:58 | NUR ---
BLOOD VERIFIED WITH Maureen KILPATRICK RN.
[2024-07-13 22:08] LABS: URINE BILIRUBIN - DIPSTICK Negative (NEGATIVE); URINE BLOOD DIPSTICK Negative (NEGATIVE); URINE COLOR Yellow; URINE GLUCOSE - DIPSTICK Negative (NEGATIVE); URINE KETONE Negative (NEGATIVE); URINE LEUK ESTERASE Negative (NEGATIVE); URINE NITRITE - DIPSTICK Negative (Negative); URINE PROTEIN - DIPSTICK Negative (NEG-TRACE); URINE UROBILINOGEN - DIPSTICK 0.2 E.U./dL (0.2)
--- NOTE | 2024-07-13 22:09 | NUR ---
EDP ASKED FOR CLARIFICATION ON AMOUNT OF BLOOD UNITS TO BE GIVEN. CONFUSION ARISING FROM DUPLICATE ORDERS FOR BLOOD FROM DR HOOK AND DR WIN. PER DR WIN, ONLY ONE UNIT OF BLOOD IS ORDERED AND TO BE GIVEN IN ED. PATIENT IS NOT ADMITTED AT THIS TIME, PENDING RADIOLOGY AND LAB RESULTS.
[2024-07-13] MEDS ORDERED: B-121000 MC1 PO (22:23)
[2024-07-13] MEDS ORDERED: VITAMIN D1.25 MG PO (22:24)
[2024-07-13] MEDS ORDERED: PANTOPRAZOLE SO40 M1 PO (22:26)
[2024-07-13] MEDS ORDERED: LEVETIRACETAM500 MG PO (22:27)
[2024-07-13] MEDS ORDERED: DIVALPROEX SOD PO (22:28)
[2024-07-13] MEDS ORDERED: SENNA8.6 MG PO (22:29)
[2024-07-13] MEDS ORDERED: AMLODIPINE BESYL5 MG PO (22:29)
[2024-07-13] MEDS ORDERED: ALPRAZOLAM0.5 M2 PO (22:30)
[2024-07-13] MEDS ORDERED: ONDANSETRON4 MG PO (22:31)
[2024-07-13] MEDS ORDERED: AMMONIUM LAC122 EX (22:32)
--- NOTE | 2024-07-13 22:45 | NUR ---
POA UPDATED ON PATIENTS PLAN OF CARE. POA AGREABLE TO PLAN OF CARE.
[2024-07-13] MEDS ORDERED: CLARIFY DOSE PO PRN (22:50)
--- NOTE | 2024-07-13 23:09 | NUR ---
BEDSIDE REPORT GIVEN TO Jennifer HOWE RN.
--- NOTE | 2024-07-13 23:23 | NUR ---
PATIENT TRASNPORTED TO ICU BY ICU STAFF
--- NOTE | 2024-07-13 23:25 | NUR ---
79 yr old female admitted icu4 per stretcher from er. transferred x2 to bed. remains drowsy. bed weight obtained. registered nurse cardiac telemetry shows sinus rhythm ivcd pvcs pacs. blood transfusion cont. brown cath in place. urine clear yellow. history obtained per er record & old record. fall precautions & bed alarm cont.
[2024-07-14] VITALS (68 sets, daily range): BP systolic 93–150; BP diastolic 44–85
--- NOTE | 2024-07-14 02:00 | NUR ---
eyes closed. no active bleeding. no apparent distress. brown draining well.
--- NOTE | 2024-07-14 04:00 | NUR ---
blood transfusion conts. no active bleeding. brown draining well.
--- NOTE | 2024-07-14 07:15 | NUR ---
Report received from manager night nurse. Patient is resting in bed, denies any pain. States that she wants to go home. Patient is A&O to self and place. On 2L NC, NSR on tele monitor, VS kevin MILLIGAN in place. Protonix drip and NS running as ordered. All needs addressed, call light within reach.
[2024-07-14 07:34] LABS: HEMATOCRIT 30.8 % (37.0-47.0); HEMOGLOBIN 10.1 g/dl (12.0-16.0)
[2024-07-14] MEDS ORDERED: CEFEPIME HYDROCHLORIDE 1 GM in SODIUM CHLORIDE 0.9% 50 ML IV SCH (08:00)
--- NOTE | 2024-07-14 08:44 | NUR ---
S: CLAUDIA FRANK is a 79 F who presents with sepsis. O: VS: BP 121/60, P 86, RR 13,T 98.0 W 63.5 kg, HT 64 in, Scr= 1.2, CrCl= 32.8 ml/min A: Blood culture is pending. P: Patient is on Cefepime 1gm IV q12h. Vancomycin ordered for pharmacy to dose. Start Vancomycin 750 mg IV Q24H. Vancomycin trough is drawn before the 3rd dose on 07/15/240. Vancomycin goal trough is between <15-20 mcg/ml>. Pharmacy will follow and or advise on antibiotics use as needed.
--- NOTE | 2024-07-14 11:45 | NUR ---
Dr Beth at bedside speaking with JHONY who is cousin to the patient about plan for EGD tomorrow and colonoscopy on friday.
[2024-07-14] MEDS ORDERED: MAGNESIUM CITRATE 296 ML/BTL PO SCH (12:30)
--- NOTE | 2024-07-14 12:30 | NUR ---
Per edy Crane to downgrade patient to med surg.
[2024-07-14 13:28] LABS: HEMOGLOBIN 9.3 g/dl (12.0-16.0)
--- NOTE | 2024-07-14 16:00 | NUR ---
Patient moved to med surg room 274 in bed without issue. Patient is A&O to self only, on room air, VS WNL, placed on tele box #[id number], NSR on tele monitor, kevin in place. IV fluids and protonix drip running as ordered. All needs addressed, call light within reach.
[2024-07-14 17:53] LABS: HEMATOCRIT 29.5 % (37.0-47.0); HEMOGLOBIN 9.5 g/dl (12.0-16.0)
--- NOTE | 2024-07-14 19:45 | NUR ---
PT ALERT TO SELF, STAFF MUST ANTICIPATE NEEDS. PT AFEBRILE, PT DENIES CP, SOB, OR DISTRESS AT THIS TIME. IV FLUIDS CONTINUES,18G LAC, NO S/S OF REDNESS OR INFILTRATION NOTED AT SITE. PT REMAINS NPO. LS CLEAR THROUGHOUT, BSX4 ACTIVE. MUÑIZ PATENT, DRAINING TO BSD, CLEAR YELLOW URINE NOTED. BS 187, NO S/S COVERAGE ORDERED. PT REMAINS CONFUSED, TALKING OUT TO SELF. PT REDIRECTS EASILY. PT ORIENTED TO BED, UNIT AND CALL LIGHT. BED ALARM INTACT. CALL LIGHT IN REACH. WILL MONITOR.
[2024-07-14] MEDS ORDERED: VANCOMYCIN HCL 750 MG in SODIUM CHLORIDE 0.9% 250 ML IV SCH (20:00)
--- NOTE | 2024-07-14 23:46 | NUR ---
PT RESTING IN BED WITH EYES CLOSED, RESP EVEN/UNLABORED, MUÑIZ PATENT DRAINING TO BSD, CLEAR YELLOW URINE, GOOD MUÑIZ CARE PROVIDED, PT REPOSITIONED, PT TOLERATED WELL .BED ALARM INTACT, LOWEST POSITION. CALL LIGHT IN REACH. WILL MONITOR.
[2024-07-15] VITALS (11 sets, daily range): BP systolic 114–154; BP diastolic 41–80
[2024-07-15 00:31] LABS: HEMATOCRIT 26.5 % (37.0-47.0); HEMOGLOBIN 8.7 g/dl (12.0-16.0)
--- NOTE | 2024-07-15 00:45 | NUR ---
ROUTINE LAB DRAW AT BEDSIDE ATTEMPTING TO OBTAIN SAMPLE FOR SERIAL H&H POST INFUSION FOR REVIEW OF MD STABILIZATION. HOPPER OPERATOR UNABLE TO DRAW BLOOD DUE TO PT BEHAVIORS OF SCREAMING, CRYING, AND MAKING STATEMENTS POTENTIALLY R/T EVENTS NOT OCCURING WITHIN THE FACILITY OR DURING THIS ADMISSION. DISCUSSED SPECIFICS WITH SUPERVISOR MICROFILM DUPLICATING UNIT AND ENTERED STAT CONSULT FOR MORNING OF 07/15/24 FOR COLLABORATIVE EVALUATION WITH DETAILS OF EVENT DOCUMENTED WITHIN THE CONSULT. AT THE TIME OF THE EVENT, RN ASSESSED PT MENTATION - EVEN IF INTERMITTENT- TO DETERMINE COGNIZANCE AND AWARENESS AT TIME STATEMENTS WERE MADE. PT DETERMINED TO BE A/OX3 AT THE TIME OF THE INTERVIEW AND DISCUSSION WITH OVERSEEING SHAREPOINT DEVELOPER; PT AWARE OF LOCATION - INCLUDING HOSPITAL AND TOWN, PT STATED SHE BELIEVED IT WAS 2024 BUT DID NOT KNOW WHO THE PRESIDENTS NAME WAS OTHER THAN HIS FUNNY HAIR. PT REPORTED SHE BELIEVED THE MONTH TO BE JUN, POSSIBLY TURNING JULY. PT STATED PROXIMITY IN TIME IN RELATION TO CURRENT ADMISSION IS REPORTED *ONGOING* WITH MOST RECENT INTERACTION APPROXIMATELY WITHIN 72HRS PRECEDING ADMISSION TO [facility] PER PT DESCRIPTION AND COMMUNICATION. DISCUSSED WITH ADMIN/SUP, ENTERED CONSULT TO CASE MANAGEMENT. PT IS MEDICALLY STABLE AT THIS TIME, WITH NO INDICATION OF ACUTE DISTRESS/INJURY OR COMPLICATION. PT APPEARS TO BE BEHAVIORALLY STIMULATED, WITH CLEAR INDICATION OF DURESS, FEAR AND ANXIETY WHETHER VALID OR RELATED TO PT PERCEPTION. SHAREPOINT DEVELOPER ABLE TO OBTAIN H&H BLOOD DRAW SAMPLE FROM NEWLY PLACED IV SITE LFA (+) PATENT WITH 10CC WASTED AND 7CC OBTAINED FOR TRANSFER TO COLLECTION TUBE PER MD ORDER. NO OBVIOUS SIGNS OF INJURY NOTED. NO ACTIONS OR INTERACTIONS BY STAFF DETERMINED TO BE CONTRIBUTING FACTORS TO PT REPORT AND BEHAVIOR. CASE MANAGMENT NOTIFIED PER PROTOCOL. PT WAS REPOSITIONED ONCE GENTLY CALMED AND MADE COMFORTABLE. 3/4 SIDE RAILS UP FOR SAFETY WITH BED ALARM ENGAGED AND FALL PRECAUTIONS IN PLACE. VSS AT THIS TIME. SHAREPOINT DEVELOPER REMAINED WITH PT UNTIL PT FELL ASLEEP COMFORTABLY WITH NO SIGNS OF DISTRESS DEMONSTRATED.
--- NOTE | 2024-07-15 03:45 | NUR ---
PT RESTING IN BED WITH EYES CLOSED, PT REMAINS NPO. NO S/S OF DISTRESS NOTED AT THIS TIME. RESP. EVEN/UNLABORED. IV INTACT, INFUSING ORDERED, NO S/S OF INFILTRATION OR REDNESS AT SITE. BED ALARM INTACT. CALL LIGHT IN REACH, STAFF MONITORING REGULARLY.
[2024-07-15 05:55] LABS: HEMATOCRIT 27.9 % (37.0-47.0); MEAN CELL VOLUME 92.1 fL CALC (80.0-100.0); MEAN CORPUSCULAR HGB 29.7 pG CALC (26.0-32.0); MEAN CORPUSCULAR HGB CONC 32.3 g/dL CAL (32.0-36.0); RED BLOOD COUNT 3.03 mill/uL (4.20-5.60); RED CELL DISTRI WIDTH 17.4 % (11.5-15.5)
[2024-07-15 05:56] LABS: ALBUMIN 2.9 g/dL (3.2-5.0); CREATININE 0.8 mg/dL (0.5-1.0); MAGNESIUM 2.3 mg/dL (1.6-2.3)
[2024-07-15 06:02] LABS: BILIRUBIN, TOTAL 0.7 mg/dL (0.02-1.3); POTASSIUM 3.4 mmol/l (3.5-5.1)
--- NOTE | 2024-07-15 07:30 | NUR ---
Report received from manufacturing shift supervisor nurse. Patient is resting in bed, denies any pain. Patient is confused and only oriented to self per baseline. Patient is on room air, NSR on tele monitor, VS kevin MILLIGAN in place. IV fluids and protonix drip running as ordered. Plan for patient to have EGD today. All needs addressed, call light within reach.
[2024-07-15] MEDS ORDERED: DEXTROSE 5% 1,000 ML IV PRN (08:40)
[2024-07-15] MEDS ORDERED: SODIUM CHLORIDE 0.9% 1,000 ML IV ONE (09:45)
--- NOTE | 2024-07-15 09:45 | NUR ---
OR staff here to take patient to OR for procedure.
[2024-07-15] MEDS ORDERED: REMIMAZOLAM BESYLATE 20 MG/VIAL INJ IV ONE (11:34)
[2024-07-15 11:54] LABS: ALBUMIN 2.7 g/dL (3.2-5.0); BILIRUBIN, TOTAL 0.6 mg/dL (0.02-1.3); CREATININE 0.8 mg/dL (0.5-1.0); POTASSIUM 3.5 mmol/l (3.5-5.1); TOTAL PROTEIN 5.6 g/dL (6.3-8.2)
--- NOTE | 2024-07-15 12:00 | NUR ---
Patient is still off unit for procedure.
[2024-07-15 12:08] LABS: HEMATOCRIT 27.2 % (37.0-47.0); HEMOGLOBIN 8.8 g/dl (12.0-16.0)
[2024-07-15] MEDS ORDERED: SODIUM CHLORIDE 0.45% 1,000 ML IV PRN (12:20)
--- NOTE | 2024-07-15 16:00 | NUR ---
Patient is resting in bed, denies any pain. A&O to self only, on room air, VS WNL, NSR on tele monitor, IV fluids and protonix drip running as ordered. All needs addressed, call light within reach.
[2024-07-15 18:12] LABS: HEMATOCRIT 29.8 % (37.0-47.0); HEMOGLOBIN 9.1 g/dl (12.0-16.0)
--- NOTE | 2024-07-15 19:10 | NUR ---
PATIENT OBSERVED RESTING IN BED ON HER RIGHT SIDE. ASSESSMENT COMPLETE. PATIENT ALERT WITH CONFUSION. NO COMPLAINTS OF PAIN. NO DISTRESS NOTED. MUÑIZ PATENT DRAINING CLEAR YELLOW URINE. BED REMAINS IN LOW POSITION. CALL BARBA IN REACH. BED ALARM ACTIVE FOR SAFETY.
--- NOTE | 2024-07-15 19:21 | NUR ---
CLARIFIED WITH SURGEON ON PATIENT GETTING COLONOSCOPY OR NOT TOMORROW. PER SURGEON PATIENT WILL NOT BE GETTING COLONOSCOPY.
[2024-07-16] VITALS (12 sets, daily range): BP systolic 134–173; BP diastolic 48–78
--- NOTE | 2024-07-16 00:10 | NUR ---
PATIENT REMAINS RESTING IN BED. CHANGES HER POSITION BY HERSELF. DENIES NEEDING ANYTHING AT THIS TIME. BED REMAINS IN LOW POSITION. CALL BARBA IN REACH. BED ALARM REMAINS ACTIVE FOR SAFETY.
[2024-07-16 01:02] LABS: HEMATOCRIT 24.9 % (37.0-47.0)
--- NOTE | 2024-07-16 03:30 | NUR ---
PATIENT REMAINS RESTING IN BED ON HER RIGHT SIDE. DENIES NEEDING ANYTHING. DOES APPEAR TO ASK THE SAME QUESTION MULTIPLE TIMES. NEEDS FREQUENT REDIRECTING. BED REMAINS IN LOW POSITION. CALL BARBA IN REACH. BED ALARM REMAINS ACTIVE FOR SAFETY.
[2024-07-16 05:38] LABS: BASO% 0.3 % (0-3); EOS% 0.8 % (0-8); HEMATOCRIT 23.9 % (37.0-47.0); HEMOGLOBIN 7.9 g/dl (12.0-16.0); IMMATURE GRANULOCYTES 0.3 % (0.0-5.0); LYMPH% 14.2 % (15-41); MEAN CELL VOLUME 93.4 fL CALC (80.0-100.0); MEAN CORPUSCULAR HGB 30.9 pG CALC (26.0-32.0); MEAN CORPUSCULAR HGB CONC 33.1 g/dL CAL (32.0-36.0); MONO% 9.5 % (2-13); NEUT# 8.8 thou/uL (2.00-7.15); NEUT% 74.9 % (42-76); RED BLOOD COUNT 2.56 mill/uL (4.20-5.60); RED CELL DISTRI WIDTH 17.8 % (11.5-15.5)
[2024-07-16 05:49] LABS: ALBUMIN 2.4 g/dL (3.2-5.0); BILIRUBIN, TOTAL 0.8 mg/dL (0.02-1.3); CREATININE 0.8 mg/dL (0.5-1.0); POTASSIUM 3.2 mmol/l (3.5-5.1); TOTAL PROTEIN 5.3 g/dL (6.3-8.2)
--- NOTE | 2024-07-16 07:10 | NUR ---
PT LAYING IN BED AWAKE WATCHING TV, PT IS ALERT AND ORIENTED TO HERSELF, PUPILS PERRL, RESP. EVEN AND UNLABORED, LUNG SOUNDS ARE DIMIINSHED IN THE BASES,22G RW IV WITH FLUIDS INFUSING AT PRESCRIBED RATE, ABD DISTENED AND SOFT WITH ACTIVE BOWEL SOUNDS, STRONG RADIAL AND PEDAL PULSES, MUÑIZ IN PLACE DRAINING CLEAR YELLOW URINE, SAFETY MEASURES REINFORCED, CALL BARBA WITHIN REACH
--- NOTE | 2024-07-16 07:30 | NUR ---
PT ASSISTED WITH AM MEAL
[2024-07-16] MEDS ORDERED: POTASSIUM CHLORIDE 20 MEQ/TAB PO SCH (08:00)
[2024-07-16] MEDS ORDERED: SODIUM CHLORIDE 0.9% 500 ML IV ONE (10:10)
--- NOTE | 2024-07-16 10:50 | NUR ---
patient glucose level is 116.
[2024-07-16 11:51] LABS: HEMOGLOBIN 7.9 g/dl (12.0-16.0)
--- NOTE | 2024-07-16 12:00 | NUR ---
PT LAYING IN BED WATCHING TV, PT ASSISTED WITH LUNCH, PT TOLERATED WELL, NO S/S OF DISTRESS AT THIS TIME, CALL BARBA WITHIN REACH
[2024-07-16] MEDS ORDERED: PANTOPRAZOLE Sodium 80 MG in SODIUM CHLORIDE 0.9% 80 ML IV SCH (14:30)
--- NOTE | 2024-07-16 16:00 | NUR ---
PT LAYING IN BED WATCHING TV, KEEPS ASKING TO GO HOME, PT REMINDED SHE IS IN THE HOSPITAL, NO S/S OF DISTRESS, CALL BARBA WITHIN REACH
--- NOTE | 2024-07-16 20:00 | NUR ---
PATIENT LYING IN BED. ASSESSMENT COMPLETED (SEE INTERVENTIONS). PATIENT ALERT AND ORIENTED TO PERSON AND PLACE ONLY. PATIENT DENIES CONCERNS AT THIS TIME. SAFETY MEASURES IN PLACE INCLUDING BED LOCKED AND IN LOW POSTIION. CALL LIGHT RESTING NEXT TO R HAND. WILL CONTINUE WITH PLAN OF CARE.
[2024-07-16] MEDS ORDERED: Pantoprazole Sodium 40 MG VIAL (Protonix) IV SCH (21:00)
[2024-07-17] VITALS (14 sets, daily range): BP systolic 143–184; BP diastolic 61–91
--- NOTE | 2024-07-17 00:15 | NUR ---
PATIENT LYING IN BED. SITTER AT BEDSIDE. PATIENT DENIES CONCERNS AT THIS TIME. 22G RFA POSTERIOR INITIATED. PATIENT CURRENTLY RECEIVING 2ND BAG OF PRBCs. H&H TO BE COMPLETE LATER FOR ACCURACY.
--- NOTE | 2024-07-17 04:10 | NUR ---
PATIENT LYING IN BED. SITTER AT BEDSIDE. BLOOD TRANSFUSION COMPLETE. PATIENT DENIES CONCERNS AT THIS TIME. NO APPARENT DISTRESS. WILL CONTINUE WITH PLAN OF CARE.
[2024-07-17 06:17] LABS: BASO% 0.2 % (0-3); EOS% 0.5 % (0-8); IMMATURE GRANULOCYTES 0.2 % (0.0-5.0); MEAN CELL VOLUME 90.4 fL CALC (80.0-100.0); MEAN CORPUSCULAR HGB 30.5 pG CALC (26.0-32.0); MEAN CORPUSCULAR HGB CONC 33.7 g/dL CAL (32.0-36.0); MONO% 6.8 % (2-13); NEUT# 15.05 thou/uL (2.00-7.15); NEUT% 84.3 % (42-76); RED BLOOD COUNT 4.07 mill/uL (4.20-5.60); RED CELL DISTRI WIDTH 17.1 % (11.5-15.5)
[2024-07-17 06:23] LABS: HEMATOCRIT 36.8 % (37.0-47.0); HEMOGLOBIN 12.4 g/dl (12.0-16.0)
[2024-07-17 06:44] LABS: CREATININE 0.6 mg/dL (0.5-1.0); MAGNESIUM 1.9 mg/dL (1.6-2.3); POTASSIUM 3.3 mmol/l (3.5-5.1); TOTAL PROTEIN 6.3 g/dL (6.3-8.2)
[2024-07-17 06:47] LABS: ALBUMIN 3.1 g/dL (3.2-5.0); BILIRUBIN, TOTAL 1.6 mg/dL (0.02-1.3)
--- NOTE | 2024-07-17 07:00 | NUR ---
Patient resting quietly in bed. No distress noted.
[2024-07-17] MEDS ORDERED: LOSARTAN Potassium 50 MG/TAB PO SCH (10:30)
[2024-07-17] MEDS ORDERED: amLODIPine BESYLATE 5 MG/TAB PO SCH (10:30)
--- NOTE | 2024-07-17 10:40 | NUR ---
patient glucose level is 157.
[2024-07-17 12:59] LABS: HEMATOCRIT 37.7 % (37.0-47.0); HEMOGLOBIN 12.6 g/dl (12.0-16.0)
== END 2024-07-17 14:00 | DRG 812 ==
LOC: ED 19:06 → ED-I 21:20 → ED 22:18 → ICU 22:19 → MS2 22:19
PROVIDERS: Emergency Medicine; Nurse Anesthetist, Certified Registered; Nurse Practitioner Family; ADMIT Internal Medicine; ATTEND Internal Medicine
PROC: 30233N1 Transfusion of Nonautologous Red Blood Cells into Peripheral Vein, Percutaneous Approach (ICD-10-PCS; principal; 2024-07-13)
PROC: 30233N1 Transfusion of Nonautologous Red Blood Cells into Peripheral Vein, Percutaneous Approach (ICD-10-PCS; 2024-07-14)
PROC: 30233N1 Transfusion of Nonautologous Red Blood Cells into Peripheral Vein, Percutaneous Approach (ICD-10-PCS; 2024-07-14)
PROC: 0DJ08ZZ Inspection of Upper Intestinal Tract, Via Natural or Artificial Opening Endoscopic (ICD-10-PCS; 2024-07-15)
PROC: 30233N1 Transfusion of Nonautologous Red Blood Cells into Peripheral Vein, Percutaneous Approach (ICD-10-PCS; 2024-07-16)
PROC: 30233N1 Transfusion of Nonautologous Red Blood Cells into Peripheral Vein, Percutaneous Approach (ICD-10-PCS; 2024-07-17)
DX: D62 Acute posthemorrhagic anemia (principal); K92.2 Gastrointestinal hemorrhage, unspecified; F03.911 Unspecified dementia, unspecified severity, with agitation; E86.0 Dehydration; I12.9 Hypertensive chronic kidney disease with stage 1 through stage 4 chronic kidney disease, or unspecified chronic kidney disease; E11.22 Type 2 diabetes mellitus with diabetic chronic kidney disease; N18.9 Chronic kidney disease, unspecified; E78.5 Hyperlipidemia, unspecified; E11.51 Type 2 diabetes mellitus with diabetic peripheral angiopathy without gangrene; I25.2 Old myocardial infarction; I25.10 Atherosclerotic heart disease of native coronary artery without angina pectoris; Z86.73 Personal history of transient ischemic attack (TIA), and cerebral infarction without residual deficits
CPT/HCPCS: J0692; J2249; J2470; J3370; P9016; Q9967